=== PATIENT | female | born 1955 | race Caucasian/White ===

== ENCOUNTER 2016-11-19 21:56 | Emergency (ER) | payer SELFPAY ==
[~2016-11-19] VITALS: Ht 175.3 cm; Wt 68.5 kg
[2016-11-19] MEDS ORDERED: DIPH,PERTUSS(ACELL),TET VAC/PF 0.5 ML IM-VACC ONE ×2 (22:30→22:33)
[2016-11-19] MEDS ORDERED: OXYcodone/APAP 5/325MG TABLET PO ONE (22:30)
[2016-11-19] MEDS ORDERED: OXYcodone/APAP 5/325MG TABLET ONE (22:32)
[2016-11-19] MEDS: PLEASE ENTER ALLERGIES MC SCH ×4 (22:44→23:39)
[2016-11-19] MEDS ORDERED: LIDOCAINE 1%, 20ML ONE (22:45)
[2016-11-19] MEDS ORDERED: LIDOCAINE 1%, 10ML INFIL ONE (23:00)
[2016-11-19] MEDS ORDERED: CARV6.2512 PO (23:33)
[2016-11-19] MEDS ORDERED: CEPH-376 PO (23:52)
[2016-11-19] MEDS ORDERED: INSU100V8 SQ (23:53)
[2016-11-19] MEDS ORDERED: HYDR-3138 PO (23:53)
[2016-11-19] MEDS ORDERED: DOCU250C2 PO (23:53)
[2016-11-19] MEDS ORDERED: LOSA1TAB17 PO (23:54)
[2016-11-19] MEDS ORDERED: METF10002 PO (23:54)
[2016-11-19] MEDS ORDERED: SIMV40TA3 PO (23:55)
[2016-11-19] MEDS ORDERED: PRED50TA PO (23:56)
[2016-11-20 02:27] VITALS: BP 162/73
== END 2016-11-20 02:49 | disposition home or self-care (01) ==
LOC: ED 23:59
DX: S01.01XA Laceration without foreign body of scalp, initial encounter (principal); S06.0X0A Concussion without loss of consciousness, initial encounter; I10 Essential (primary) hypertension; E11.9 Type 2 diabetes mellitus without complications; W01.10XA Fall on same level from slipping, tripping and stumbling with subsequent striking against unspecified object, initial encounter; Y93.89 Activity, other specified; Y92.59 Other trade areas as the place of occurrence of the external cause; Y99.8 Other external cause status
CPT/HCPCS: 12002; 70450; 71010; 72110; 90471; 90715; 99284; J3490